=== PATIENT | male | born 1960 | race Caucasian/White ===

== ENCOUNTER 2018-07-26 10:30 | Emergency (ER) | payer SELFPAY ==
[~2018-07-26] VITALS: Ht 165.1 cm; Wt 64.0 kg
[2018-07-26 10:35] VITALS: BP 115/67
== END 2018-07-26 18:42 | disposition left against medical advice (07) ==
LOC: ER 10:30
DX: Z53.21 Procedure and treatment not carried out due to patient leaving prior to being seen by health care provider (principal)